=== PATIENT | female | born 1975 | race Caucasian/White ===

== ENCOUNTER 2019-07-02 12:17 | Emergency (ER) | payer OTHER ==
[~2019-07-02] VITALS: Ht 157.5 cm; Wt 56.7 kg
[2019-07-02] MEDS ORDERED: SUBOXONE 8 MG-1 EAC1 SL (12:26)
[2019-07-02] MEDS ORDERED: NEURONTIN600 MG PO (12:26)
[2019-07-02] MEDS ORDERED: MULTIVITAMINS1 EAC7 PO (12:27)
[2019-07-02] MEDS ORDERED: ASPIR-TRIN325 MG PO (12:27)
[2019-07-02] MEDS ORDERED: PREDNISONE20 MG PO (12:27)
[2019-07-02] MEDS ORDERED: TRAZODONE HCL100 MG PO (12:27)
[2019-07-02] MEDS ORDERED: IBUPROFEN800 MG PO (12:28)
[2019-07-02] MEDS ORDERED: KEFLEX500 MG PO (12:48)
--- OUTSIDE RECORDS SUMMARY | 2019-07-02 13:42 | XMS ---
PreManage Notification: MANOJ DUONG Security Audiovisual Librarian Events No recent Security Events currently on file CRITERIA MET - [facility] CARE PROVIDERS [facility] Primary Care [facility] PHONE: Unknown [facility] Current PHONE: Unknown [facility] Care 01/10/2014-[facility] PHONE: Unknown Trisha has no Care Guidelines for this patient. E.D. VISIT COUNT (12 MO.) 2 [facility] 1 LATASHA DouglasAlly TOTAL 3 NOTE: Visits indicate total known visits. ED/UCC VISIT TRACKING (12 MO.) 07/02/2019 12:18 [facility] [place] TYPE: Emergency COMPLAINT: - FINGER PAIN/INJURY 10/31/2018 16:28 [facility] [place] TYPE: Emergency DIAGNOSES: - Major depressive disorder, single episode, severe with psychotic features - Alcohol use, unspecified with intoxication, uncomplicated - INTOXICATION 10/10/2018 11:48 [facility] [place] TYPE: Emergency DIAGNOSES: - Acute gastritis without bleeding - DEHYDRATED INPATIENT VISIT TRACKING (12 MO.) No inpatient visits to display in this time frame [email or web address]
== END 2019-07-02 13:43 | disposition home or self-care (01) ==
LOC: ED 12:17
DX: L03.012 Cellulitis of left finger (principal); F17.200 Nicotine dependence, unspecified, uncomplicated; Z79.52 Long term (current) use of systemic steroids; Z79.82 Long term (current) use of aspirin; Z79.899 Other long term (current) drug therapy
CPT/HCPCS: 73140; 99283

== ENCOUNTER 2024-05-24 07:50 | Emergency (ER) | payer OTHER ==
[~2024-05-24] VITALS: Ht 157.5 cm; Wt 65.7 kg
--- OUTSIDE RECORDS SUMMARY | 2024-05-24 07:52 | XMS ---
PreManage Notification: MANOJ DUONG Security Skiver Hand Events No recent Security Events currently on file CRITERIA MET - [facility] - [facility] - 2 Visits in 30 Days CARE PROVIDERS JOSE MARIA MURILLO Consultant Teacher 10/02/2023-Current PHONE: [phone] Jose Maria Murillo Community Health Worker 03/10/2020-Current PHONE: [phone] -Anna- Dentist: Data Transcriber [facility] PHONE: [phone] CHEN PEREZ Counselor: Mental Health Current PHONE: [phone] Trisha has no Care Guidelines for this patient. Care History Medical/Surgical 07/06/2019 [facility] CASE MANAGEMENT REFERRAL MADE- PATIENT HAS [facility] AND NO PCP. E.Kathryn VISIT COUNT (12 MO.) 8 [facility] [address] [place] [address] [facility] NOTE: Visits indicate total known visits. ED/UCC VISIT TRACKING (12 MO.) 05/24/2024 07:51 [facility] [place] TYPE: Emergency COMPLAINT: - MEDICAL CLEARANCE 04/28/2024 17:05 [facility] [place] TYPE: Emergency DIAGNOSES: - Poisoning by fentanyl or fentanyl analogs, accidental (unintentional), initial encounter - Poisoning by unspecified narcotics, accidental (unintentional), initial encounter - Unresponsive 12/05/2023 15:21 [facility] [place] TYPE: Emergency DIAGNOSES: - Acute serous otitis media, left ear - Acute upper respiratory infection, unspecified - Unspecified Eustachian tube disorder, left ear - EAR PAIN 09/13/2023 14:56 [facility] [place] TYPE: Emergency DIAGNOSES: - Other muscle spasm - JAW PROBLEM 09/12/2023 20:02 [facility] [place] TYPE: Emergency DIAGNOSES: - Blood alcohol level of 240 mg/100 ml or more - Panic disorder [episodic paroxysmal anxiety] - Panick Attack 07/21/2023 11:27 [facility] [place] TYPE: Emergency DIAGNOSES: - Acute pharyngitis, unspecified - POSS STREP 06/29/2023 15:06 [facility] [place] TYPE: Emergency DIAGNOSES: - Anxiety disorder, unspecified - anxiety 06/25/2023 14:13 [facility] TYPE: Emergency DIAGNOSES: - Psychiatric Evaluation 06/22/2023 10:54 [facility] [place] TYPE: Emergency DIAGNOSES: - Anxiety disorder, unspecified - Encounter for issue of repeat prescription - MED REFILL 06/21/2023 10:28 [facility] [place] TYPE: Emergency DIAGNOSES: - Anxiety disorder, unspecified - ANXIETY ATTACK INPATIENT VISIT TRACKING (12 MO.) No inpatient visits to display in this time frame [id number]
[2024-05-24 09:09] LABS: BASOPHILS 0.9 % (0-2); EOSINOPHILS 0.1 % (0-6); HEMATOCRIT 40.5 % (35.0-50.0); HEMOGLOBIN 13.9 g/dL (12.0-18.0); LYMPHOCYTES 13.4 % (24-44); MCH 32.5 (27-36); MCHC 34.3 g/dl (30-36); MCV 94.7 fl (81-99); MONOCYTES 6.8 % (0-12); NEUTROPHILS 78.8 % (39-80); PLATELET COUNT 398 K/uL (140-440); RBC 4.28 M/ul (4.3-5.7); RDW 12.7 (10.5-15.0)
[2024-05-24 09:30] LABS: ACETAMINOPHEN 0 ug/mL (10-30); ALBUMIN 4.4 g/dL (3.4-5.0); ALBUMIN/GLOBULIN RATIO 1.16 (1.1-2.4); ALCOHOL, MEDICAL <3 ng/dL (<3); ALKALINE PHOSPHATASE 44 U/L (46-116); ALT (SGPT) 17 U/L (14-59); ANION GAP 16.7 (7-21); AST (SGOT) 15 U/L (15-37); BILIRUBIN, TOTAL 0.6 ng/dL (0.2-1.0); BUN/CREATININE RATIO 12.94 (6.0-28.6); CALCIUM 9.1 mg/dL (8.5-10.1); CARBON DIOXIDE 24 mmol/L (21-32); CHLORIDE 102 mmol/L (98-107); CREATININE, SERUM 0.85 mg/dL (0.55-1.02); GLOMERULAR FILTRATION RATE,EST 84 mL/min (>60); POTASSIUM 3.7 mmol/L (3.5-5.1); PROTEIN, TOTAL 8.2 g/dL (6.4-8.2); SALICYLATE 1.3 mg/dL (2.8-20.0); TSH, 3RD GENERATION 1.377 uIU/mL (0.358-3.740); UREA NITROGEN 11 mg/dL (7-18)
[2024-05-24 11:59] LABS: BILIRUBIN, URINE NEGATIVE (negative); BLOOD/HGB, URINE NEGATIVE (Negative); KETONE, URINE SMALL (Negative); LEUK ESTERASE, URINE NEGATIVE (negative); NITRITE, URINE NEGATIVE (negative); PH, URINE 6.5 (5-7)
[2024-05-24 12:24] LABS: AMPHETAMINES, URINE NEGATIVE (NEGATIVE); BARBITURATES, URINE NEGATIVE (NEGATIVE); BENZODIAZEPINE, URINE NEGATIVE (NEGATIVE); BUPRENORPHINE, URINE NEGATIVE (NEGATIVE); CANNABINOID, URINE POSITIVE (NEGATIVE); COCAINE, URINE NEGATIVE (NEGATIVE); ECSTASY, URINE NEGATIVE (NEGATIVE); FENTANYL, URINE NEGATIVE (NEGATIVE); METHADONE, URINE NEGATIVE (NEGATIVE); OPIATES, URINE NEGATIVE (NEGATIVE); OXYCODONE, URINE NEGATIVE (NEGATIVE); PHENCYCLIDINE, URINE NEGATIVE (NEGATIVE)
[2024-05-25] MEDS ORDERED: QUETIAPINE FUMARATE 25 MG TAB PO SCH (10:00)
[2024-05-25] MEDS ORDERED: GABAPENTIN 300 MG CAP PO SCH (15:00)
[2024-05-25] MEDS ORDERED: IBUPROFEN 600 MG TAB PO ONE (20:00)
[2024-05-25 20:33] LABS: INFLUENZA B NAA NEGATIVE (NEGATIVE); RESPIRATORY SYNCYTIAL VIR NAA NEGATIVE (NEGATIVE)
[2024-05-26 12:54] VITALS: BP 127/70
--- NOTE | 2024-05-26 21:34 | EKG ---
[facility] [address] [place] [address] Signed Normal sinus rhythm Normal ECG When compared with ECG of 09-FEB-2021 23:08, No significant change was found Confirmed by Ethel Rivero MD () on 05/26/2024 9:34:32 PM Electronically Signed By: ETHEL RIVERO MD 05/26/[id number] PATIENT NAME: MANOJ DUONG JELLY Electrocardiogram DATE OF : 75 PHYSICIAN: ETHEL RIVERO MD REPORT #: [id number] REPORT IS CONFIDENTIAL AND NOT TO BE RELEASED WITHOUT AUTHORIZATION
== END 2024-05-26 12:59 | disposition home or self-care (01) ==
LOC: ED 07:50
PROVIDERS: Emergency Medicine; Family Medicine
DX: R41.82 Altered mental status, unspecified (principal); Z87.891 Personal history of nicotine dependence; Z88.5 Allergy status to narcotic agent
CPT/HCPCS: 36415; 70450; 80053; 80307; 81003; 84443; 84703; 85025; 87502; 93005; 93010; 99285-25; A9270; G0480; U0002